=== PATIENT | male | born 1975 | race Caucasian/White ===

== ENCOUNTER 2017-01-25 12:15 | Emergency (ER) | payer MEDICAID ==
--- NOTE | 2017-01-25 12:33 | EDPHY ---
H & P Time Seen by Provider: 01/25/17 12:21 HPI/ROS: CHIEF COMPLAINT: Right testicle pain x 3 days HISTORY OF PRESENT ILLNESS: 41-year-old homeless male complaining of acute right testicle pain for the past 3 days which started after he was getting out of the shower and bumped his right testicle. No urethral discharge. No dysuria hematuria increased frequency. Last unprotected sexual activity was 6 days ago with a female. No prior history of known STD. No straddle injury. PHYSICAL EXAM (Prior to examination, patient consented to physical exam, hands were washed and my usual and customary physical exam procedures followed) 1) GENERAL: Well-developed, well-nourished, alert and oriented. Appears to be in no acute distress. 2) HEAD: Normocephalic 3) HEENT: sclera anicteric 4) LUNGS: Breathing comfortably. 5) : Circumcised. No urethral discharge. Bilateral testicles are descended with bilateral cremasteric reflex present and brisk. No visible trauma. No signs of Vinay's gangrene or cellulitis. Smoking Status: Current every day smoker Constitutional: Initial Vital Signs Temperature (C) 36.6 C 01/25/17 12:17 Heart Rate 64 01/25/17 12:17 Respiratory Rate 16 01/25/17 12:17 Blood Pressure 104/77 01/25/17 12:17 O2 Sat (%) 96 01/25/17 12:17 O2 Delivery Mode Room Air Allergies/Adverse Reactions: geodone Allergy (Severe, Uncoded 01/25/17 12:20) "locks me up" Home Medications: Medication Instructions Recorded Doxycycline Hyclate 100 mg PO BID #20 capsule 01/25/17 Haloperidol Dec IM Q4wk 100 mg IM 01/25/17 [Haldol Decanoate 100 *IM Q4week*] MDM/Departure - MDM Imaging Results: Imaging Impressions Testicular Ultrasound 01/25/17 12:30 Impression: Right epididymitis. Findings were discussed with Jessica Law PA-C at 13:17, on 01/25/2017. Images reviewed by myself ED Course/Re-evaluation: Patient was re-evaluated with serial examinations was recently at 1:20 p.m.. Discussed his imaging results consistent with right-sided epididymitis. Suspect STD. Treated with Rocephin and doxycycline. Doubt torsion. Doubt malignancy. Recommend [facility] Differential Diagnosis: In no particular order including but not limited to Vinay's gangrene, cellulitis, testicular torsion, epididymitis, testicular fracture - Depart Disposition: Home, Routine, Self-Care Clinical Impression: Right epididymitis Condition: Good Instructions: Scrotal Pain (ED), Epididymitis (ED) Additional Instructions: Return to the ER if you develop new or worsening testicle pain, abdominal pain, fever, chills or any other symptoms. Prescriptions: Doxycycline Hyclate 100 mg PO BID #20 capsule Referrals: [facility],. [Clinic] - 1-2 days without fail
[2017-01-25 12:48] LABS: COLOR YELLOW; LEUKOCYTE ESTERASE,URINE NEGATIVE (NEGATIVE); NITRITE,URINE NEGATIVE (NEGATIVE)
[2017-01-25 13:24] LABS: MUCUS TRACE /lpf (NONE-1+)
[2017-01-25] MEDS ORDERED: CEFTRIAXONE IM 350 MG/ML SYRINGE IM ONE ×2 (13:25→13:45)
[2017-01-25] MEDS ORDERED: DOXYCYCLINE HYCLATE 100 MG CAP/TAB PO ONE (13:25)
[2017-01-25 14:29] VITALS: BP 137/72; PULSE 78; RESP 20; TEMP 98.1; O2SAT 97
[2017-01-26 12:23] LABS: CHLAMYDIA AMPLIFICATION GENPRB NEGATIVE (NEGATIVE)
== END 2017-01-25 15:10 | disposition home or self-care (01) ==
DX: N45.1 Epididymitis (principal); F17.200 Nicotine dependence, unspecified, uncomplicated
CPT/HCPCS: J0696

== ENCOUNTER 2017-06-29 05:25 | Emergency (ER) | payer MEDICAID ==
[2017-06-29] MEDS ORDERED: LITHIUM CARBONATE 300 MG TAB PO ONE (05:29)
--- NOTE | 2017-06-29 05:34 | EDPHY ---
H & P HPI/ROS: HPI CHIEF COMPLAINT: Right hand pain, "I need lithium " HISTORY OF PRESENT ILLNESS: This patient 42-year-old male, presents emergency room by EMS for right hand pain. He states he punched a wall 10 days ago. He now has right hand pain it has been present for 10 days and swelling. He thinks he has a boxer's fracture he has had 1 before. A doing reports to me that he has not had lithium in 2 days. He wants a lithium does 300 mg. declined blood draw. Past Medical History: Schizoaffective disorder Past Surgical History: No recent surgery Social History: Homeless, denies drugs alcohol tobacco products. Family History: Noncontributory ROS REVIEW OF SYSTEMS: A comprehensive 10 point review of systems is otherwise negative aside from elements mentioned in the history of present illness. Exam Constitutional appears well nontoxic, triage nursing summary reviewed, vital signs reviewed, awake/alert. Eyes normal conjunctivae and sclera, EOMI, PERRLA. HENT normal inspection, atraumatic, moist mucus membranes, no epistaxis, neck supple/ no meningismus, no raccoon eyes. Respiratory clear to auscultation bilaterally, normal breath sounds, no respiratory distress, no wheezing. Cardiovascular rate normal, regular rhythm, no murmur, no edema, distal pulses normal. Gastrointestinal soft, non-tender, no rebound, no guarding, normal bowel sounds, no distension, no pulsatile mass. Genitourinary no CVA tenderness. Musculoskeletal : Right hand vascular intact. Good distal pulse. Good cap refill. Good sensation. Full range of motion. However noted swelling 4th and 5th metacarpal he is unable to fully extend his 4th and 5th digit. Good cap refill. Sensation intact. Vascularly intact. no midline vertebral tenderness , full range of motion, no calf swelling, no tenderness of extremities, no meningismus, good pulses, neurovascularly intact. Skin pink, warm, & dry, no rash, skin atraumatic. Neurologic awake, alert and oriented x 3, AAOx3, moves all 4 extremities equally, motor intact, sensory intact, CN II-XII intact, normal cerebellar, normal vision, normal speech. Psychiatric normal mood/affect. Heme/Lymph/Immune no lymphadenopathy. Differential Diagnosis: Includes but is not limited to in a particular order boxer's fracture, need for lithium. Right hand contusion, right hand soft tissue injury Medical Decision Making: Plan for this patient x-ray right hand to rule out fracture. If there is a fracture be splinted and referred to Hand surgery. I will give him a dose of lithium 300 mg here at his request. Re-evaluation: 0556AM: X-ray reviewed. This shows a fracture of the 4th and 5th metacarpal. This is 10-day-old. Patient be splinted ulnar gutter splint. Follow up with Hand surgery. I discussed this with the patient. He understands. I have answered his questions. Compartments are soft. He understands to return emergency room if he has any questions or concerns. Source: Patient, EMS - Medical/Surgical History Other PMH: PS - Social History Smoking Status: Current every day smoker Constitutional: Initial Vital Signs Temperature (C) 36.7 C 06/29/17 05:33 Heart Rate 68 06/29/17 05:33 Respiratory Rate 16 06/29/17 05:33 Blood Pressure 119/65 06/29/17 05:33 O2 Sat (%) 97 06/29/17 05:33 O2 Delivery Mode Room Air Allergies/Adverse Reactions: geodone Allergy (Severe, Uncoded 06/29/17 05:29) "locks me up" Home Medications: Medication Instructions Recorded Doxycycline Hyclate 100 mg PO BID #20 capsule 01/25/17 Haloperidol Dec IM Q4wk 100 mg IM 01/25/17 [Haldol Decanoate 100 *IM Q4week*] LORazepam 06/29/17 Medical Decision Making - Data Points Medications Given: Discontinued Medications [place] Carbonate ([place] Carbonate) 300 mg PO ONCE ONE Stop: 06/29/17 05:30 Last Admin: 06/29/17 05:44 Dose: 300 mg Departure - Departure Disposition: Home, Routine, Self-Care Clinical Impression: Boxers fracture Qualifiers: Encounter type: initial encounter Fracture type: closed Qualified Code(s): S62.339A - Displaced fracture of neck of unspecified metacarpal bone, initial encounter for closed fracture Condition: Good Instructions: Hand Fracture (ED) Additional Instructions: 1. Follow up with Orthopedics Hand surgery. 2. Return emergency room if develops worsening symptoms questions or concerns. 3. Stay in your splint for comfort. Do not get wet. Referrals: Patient,NotPresent [Unknown] - As per Instructions Yuan Sanderson MD [Medical Doctor] - As per Instructions
[2017-06-29 05:35] VITALS: BP 119/65; PULSE 68; RESP 16; TEMP 98.1; O2SAT 97
== END 2017-06-29 06:16 | disposition home or self-care (01) ==
LOC: EDUNIT#
DX: S62.334A Displaced fracture of neck of fourth metacarpal bone, right hand, initial encounter for closed fracture (principal); S62.336A Displaced fracture of neck of fifth metacarpal bone, right hand, initial encounter for closed fracture; F17.200 Nicotine dependence, unspecified, uncomplicated; W22.01XA Walked into wall, initial encounter

== ENCOUNTER 2017-07-01 00:04 | Emergency (ER) | payer MEDICAID ==
[2017-07-01] MEDS ORDERED: NS 1,000 ML IV ONE ×2 (01:17→02:05)
[2017-07-01 01:22] LABS: % IMMATURE GRANULYOCYTES 0.5 % (0.0-1.1); ABSOLUTE IMMATURE GRANULOCYTES 0.09 10^3/uL (0.00-0.10); ADD DIFF? NO; ADD MORPH? NO; ADD SCAN? NO; ATYPICAL LYMPHOCYTE FLAG 0 (0-99); FRAGMENT RBC FLAG 0 (0-99); HEMATOCRIT 43.1 % (40.0-51.0); LEFT SHIFT FLG 0 (0-99); LIPEMIA HEMOLYSIS FLAG 90 (0-99); MEAN CELL HEMOGLOBIN 32.2 pg (27.9-34.1); MEAN CELL HEMOGLOBIN CONCENTR. 34.8 g/dL (32.4-36.7); MEAN CELL VOLUME 92.5 fL (81.5-99.8); MEAN PLATELET VOLUME 9.9 fL (8.7-11.7); PLATELET CLUMPS FLAG 10 (0-99); PLATELET COUNT 208 10^3/uL (150-400); RED BLOOD CELL COUNT 4.66 10^6/uL (4.40-6.38); RED CELL DISTRIBUTION WIDTH 13.3 % (11.5-15.2)
[2017-07-01 01:27] LABS: ANION GAP 14 mEq/L (8-16); CALCIUM 10.1 mg/dL (8.5-10.4); CARBON DIOXIDE 28 mEq/l (22-31); CHLORIDE 104 mEq/L (97-110); GLOMERULAR FILTRATION RATE > 60; GLUCOSE 111 mg/dL (70-100); SODIUM 146 mEq/L (134-144)
--- NOTE | 2017-07-01 01:33 | EDPHY ---
H & P Smoking Status: Current every day smoker Time Seen by Provider: 07/01/17 00:43 HPI/ROS: CHIEF COMPLAINT: "I am sick " HISTORY OF PRESENT ILLNESS: 42-year-old male presents to the emergency department stating "I am sick ". The patient has not been vomiting. He states "I just do not feel good ". He denies pain in his chest or difficulty breathing. He denies a headache. He denies any reported trauma. No known ill contacts. Patient has not taken any medication for his symptoms. REVIEW OF SYSTEMS: Constitutional: No fever, no chills. Eyes: No double or blurry vision. ENT: No sore throat. Respiratory: No cough, no shortness of breath. Cardiac: No chest pain. Gastrointestinal: No abdominal pain, vomiting or diarrhea. Genitourinary: No dysuria. Musculoskeletal: No neck or back pain. Skin: No rashes. Neurological: No headache. (Leona Ley) Past Medical/Surgical History: Schizoaffective disorder (Leona Ley) Social History: Homeless (Leona Ley) Physical Exam: General Appearance: No distress. 137/103, 95% on room air, afebrile with a temperature 37.1degrees. No physical signs of trauma noted. Appears tired. Eyes: Pupils equal and round. Extraocular motions are all intact. ENT: Mouth: Mucous membranes slightly dry. Respiratory: No wheezing, rhonchi, or rales, lungs are clear to auscultation. Cardiovascular: Regular rate and rhythm. Gastrointestinal: Abdomen is soft and nontender, no masses, no rebound or guarding, bowel sounds normal. Neurological: Uncooperative, cannot determine. Skin: Warm and dry, no rashes. Musculoskeletal: Nontender to palpate along the cervical, thoracic or lumbar spine. Neck is supple. Extremities: Full range of motion and no peripheral edema. Psychiatric: Agitated. (Leona Ley) Constitutional: Initial Vital Signs Temperature (C) 37.1 C 07/01/17 00:19 Heart Rate 89 07/01/17 00:19 Respiratory Rate 20 07/01/17 00:19 Blood Pressure 137/103 H 07/01/17 00:19 O2 Sat (%) 95 07/01/17 00:19 O2 Delivery Mode Room Air Allergies/Adverse Reactions: geodone Allergy (Severe, Uncoded 07/01/17 00:19) "locks me up" Home Medications: Medication Instructions Recorded Doxycycline Hyclate 100 mg PO BID #20 capsule 01/25/17 Haloperidol Dec IM Q4wk 100 mg IM 01/25/17 [Haldol Decanoate 100 *IM Q4week*] LORazepam 06/29/17 Medical Decision Making ED Course/Re-evaluation: 42-year-old homeless male presents stating that he does not feel well and states "I am sick ". Laboratory studies reveal elevated white blood cell count of over 18,000. Chemistries are within normal limits. He did receive IV normal saline in the emergency department. (Leona Ley) 0253AM: Patient resting comfortably. No acute distress. Vital signs stable. Went saw and evaluated the patient he is asking for milk to drink. He states he feels fine. He states his x-ray was to be discharged from the emergency room. His vital signs stable. He has no fever here is abdomen is soft. Blood work is reviewed. Does have a leukocytosis of 18,000 but no signs of infection on exam. Patient states he otherwise feels well. I did give patient return precautions. Stands return emergency room if develops worsening symptoms includes vomiting, fever questions or concerns. ( Valente Jennings) Differential Diagnosis: Including but not limited to electrolyte abnormality, dehydration, pneumonia, influenza, viral upper respiratory infection (Leona Ley) Care Turn Over: Care will be turned over to Dr. Jennings for disposition and plan. (Leona Ley) - Data Points Laboratory Results: Laboratory Results 07/01/17 00:55 07/01/17 00:55 07/01/17 07/01/17 07/01/17 02:28 00:55 00:55 WBC 18.21 10^3/uL H 10^3/uL (3.80-9.50) RBC 4.66 10^6/uL 10^6/uL (4.40-6.38) Hgb 15.0 g/dL g/dL (13.7-17.5) Hct 43.1 % % (40.0-51.0) MCV 92.5 fL fL (81.5-99.8) MCH 32.2 pg pg (27.9-34.1) MCHC 34.8 g/dL g/dL (32.4-36.7) RDW 13.3 % % (11.5-15.2) Plt Count 208 10^3/uL 10^3/uL (150-400) MPV 9.9 fL fL (8.7-11.7) Neut % (Auto) 89.9 % H % (39.3-74.2) Lymph % (Auto) 2.5 % L % (15.0-45.0) Christian % (Auto) 6.7 % % (4.5-13.0) Eos % (Auto) 0.2 % L % (0.6-7.6) Baso % (Auto) 0.2 % L % (0.3-1.7) Nucleat RBC Rel Count 0.0 % % (0.0-0.2) Absolute Neuts (auto) 16.38 10^3/uL H 10^3/uL (1.70-6.50) Absolute Lymphs (auto) 0.45 10^3/uL L 10^3/uL (1.00-3.00) Absolute Monos (auto) 1.22 10^3/uL H 10^3/uL (0.30-0.80) Absolute Eos (auto) 0.03 10^3/uL 10^3/uL (0.03-0.40) Absolute Basos (auto) 0.04 10^3/uL 10^3/uL (0.02-0.10) Absolute Nucleated RBC 0.00 10^3/uL 10^3/uL (0-0.01) Immature Gran % 0.5 % % (0.0-1.1) Immature Gran # 0.09 10^3/uL 10^3/uL (0.00-0.10) Sodium 146 mEq/L H mEq/L (134-144) Potassium 4.0 mEq/L mEq/L (3.5-5.2) Chloride 104 mEq/L mEq/L (97-110) Carbon Dioxide 28 mEq/l mEq/l (22-31) Anion Gap 14 mEq/L mEq/L (8-16) BUN 17 mg/dL mg/dL (7-23) Creatinine 1.0 mg/dL mg/dL (0.7-1.3) Estimated GFR > 60 Glucose 111 mg/dL H mg/dL (70-100) Calcium 10.1 mg/dL mg/dL (8.5-10.4) Urine Color PALE YELLOW Urine Appearance CLEAR Urine pH 6.0 (5.0-7.5) Ur Specific [place] 1.005 (1.002-1.030) Urine Protein NEGATIVE (NEGATIVE) Urine Ketones NEGATIVE (NEGATIVE) Urine Blood NEGATIVE (NEGATIVE) Urine Nitrate NEGATIVE (NEGATIVE) Urine Bilirubin NEGATIVE (NEGATIVE) Urine Urobilinogen NEGATIVE EU EU (0.2-1.0) Ur Leukocyte Esterase TRACE H (NEGATIVE) Urine RBC 1-3 /hpf /hpf (0-3) Urine WBC 5-10 /hpf H /hpf (0-3) Ur Epithelial Cells TRACE /lpf /lpf (NONE-1+) Urine Glucose NEGATIVE (NEGATIVE) Medications Given: Discontinued Medications Sodium Chloride (Ns) 1,000 mls @ 0 mls/hr IV ONCE ONE PRN Reason: Wide Open Stop: 07/01/17 01:18 Last Admin: 07/01/17 01:51 Dose: 1,000 mls Departure - Departure Disposition: Home, Routine, Self-Care Clinical Impression: Dehydration Condition: Good Instructions: Dehydration (ED) Additional Instructions: 1. Stay well-hydrated drink lots of fluids. 2. Return emergency room if there is worsening symptoms questions or concerns. 3. Return if you do not feel well or have high fever or vomiting. Referrals: NONE *PRIMARY CARE P,. [Primary Care Provider] - As per Instructions
[2017-07-01 02:29] VITALS: RESP 16; TEMP 97.9
[2017-07-01 02:38] LABS: COLOR PALE YELLOW; LEUKOCYTE ESTERASE,URINE TRACE (NEGATIVE); NITRITE,URINE NEGATIVE (NEGATIVE)
[2017-07-01 03:04] VITALS: BP 114/74; PULSE 66; O2SAT 96
== END 2017-07-01 03:02 | disposition home or self-care (01) ==
DX: E86.0 Dehydration (principal); F17.200 Nicotine dependence, unspecified, uncomplicated

== ENCOUNTER 2017-08-12 17:34 | Emergency (ER) | payer MEDICAID ==
[2017-08-12 17:39] VITALS: BP 118/81; PULSE 100; RESP 16; TEMP 98.4; O2SAT 95
[2017-08-12] MEDS ORDERED: LORAZEPAM 1 MG PREPACK#4 BTL TAKEHOME ONE (17:52)
--- NOTE | 2017-08-12 17:52 | EDPHY ---
H & P HPI/ROS: Chief complaint: Anxiety, needs Invega shot History of present illness: This is a 42-year-old male with multiple psychiatric problems who presents to the emergency department requesting an Invega shot. He states he was started on this last month. He normally gets them at the [facility]. However he was out of town last week, and the clinic is closed this weekend. He is starting to get very anxious without it. He knows he will get worse if he does not get medicated. He states he has also taken Ativan before to treat similar symptoms. He denies other current signs or symptoms including no suicidal ideation. No homicidal ideation. No illness or injury. - Personal History Current Tetanus/Diphtheria Vaccine: Unsure Current Tetanus Diphtheria and Acellular Pertussis (TDAP): Unsure - Medical/Surgical History Hx Asthma: No Hx Chronic Respiratory Disease: No Hx Diabetes: No Hx Cardiac Disease: No Hx Renal Disease: No Hx Cirrhosis: No Hx Alcoholism: No Hx HIV/AIDS: No Hx Splenectomy or Spleen Trauma: No Other PMH: schizoaffective,bipolar - Social History Smoking Status: Heavy smoker - Physical Exam Exam: General Appearance: Alert, nontoxic. Eyes: Pupils equal and round no injection. Respiratory: Chest is non tender, lungs are clear to auscultation. Cardiac: regular rate and rhythm Gastrointestinal: Abdomen is soft and non tender, no masses, bowel sounds normal. Musculoskeletal: Neck is supple and non tender. Extremities have full range of motion and are non tender. Skin: No rashes or lesions. Neurologic: Alert and oriented x4. Strength and sensation intact and symmetric. Psychiatric: Patient is cooperative. He is anxious. Constitutional: Initial Vital Signs Temperature (C) 36.9 C 08/12/17 17:35 Heart Rate 100 08/12/17 17:35 Respiratory Rate 16 08/12/17 17:35 Blood Pressure 118/81 H 08/12/17 17:35 O2 Sat (%) 95 08/12/17 17:35 O2 Delivery Mode Room Air Allergies/Adverse Reactions: geodone Allergy (Severe, Uncoded 08/12/17 17:39) "locks me up" Home Medications: Medication Instructions Recorded Doxycycline Hyclate 100 mg PO BID #20 capsule 01/25/17 Haloperidol Dec IM Q4wk 100 mg IM 01/25/17 [Haldol Decanoate 100 *IM Q4week*] LORazepam 06/29/17 Paliperidone Palmitate [Invega 39 mg IM Q30D 08/12/17 [place]] Medical Decision Making ED Course/Re-evaluation: Patient seen under the supervision of my primary supervising physician Dr. Madai Vincent. Patient presents to the emergency department requesting an Invega shot for his psychiatric problems. Ultimately we have discussed we are not comfortable providing this in the emergency department and that he needs to go through his mental health team. However he does state that he is treated symptoms with Ativan successfully before as well. He is asking if he can get 2 Ativan tablets to get him through the weekend until he can go and get a shot on Monday when the center opens. I have discussed that we will give him a prepack of Ativan which will contain 4 tablets. He feels very strongly that this will get him through the weekend and he can follow up for a shot on Monday. He is happy with the plan. I have discussed that in the future we cannot provide this sort of medication and that he needs to make sure he appropriately times getting his medications. The nurse has separately interviewed the patient as well as myself and patient has not reported any history of SI, HI or any current illness or injury beyond needing medications for anxiety. He is discharged. Differential Diagnosis: Included but not limited to anxiety, depression, bipolar, substance abuse - Data Points Medications Given: Discontinued Medications Lorazepam (Ativan 1 Mg Prepack#4) 1 btl TAKEHOME EDNOW ONE Stop: 08/12/17 17:53 Last Admin: 08/12/17 17:55 Dose: 1 btl Departure - Departure Disposition: Home, Routine, Self-Care Clinical Impression: Anxiety Condition: Good Instructions: Lorazepam (By mouth), Anxiety (ED) Additional Instructions: Follow-up with [facility] on Monday for your Invega shot You were given a prepack of Ativan in the emergency room today for treatment of your symptoms. In the future we cannot provide medications like this for you, you must continue to be followed by [facility] or another psychiatric facility If symptoms worsen or new symptoms develop return to the emergency room for recheck Referrals: NONE *PRIMARY CARE P,. [Primary Care Provider] - As per Instructions [facility] [Outside] - As per Instructions
== END 2017-08-12 17:57 | disposition home or self-care (01) ==
DX: F41.9 Anxiety disorder, unspecified (principal); F17.200 Nicotine dependence, unspecified, uncomplicated

== ENCOUNTER 2017-10-24 11:50 | Emergency (ER) | payer MEDICAID ==
[2017-10-24 11:57] VITALS: TEMP 97.5
--- NOTE | 2017-10-24 13:33 | EDPHY ---
H & P Stated Complaint: c/o leg pain Time Seen by Provider: 10/24/17 11:54 HPI/ROS: CHIEF COMPLAINT: Right leg pain HISTORY OF PRESENT ILLNESS: The patient presents to the ED with several days of worsening right leg pain. The patient complains primarily of pain along the medial aspect of his thigh. The patient denies prior history of PE or DVT. The patient does have a history of schizophrenia and is on outpatient Invega injections through the [facility]. The patient denies any history of fall or trauma. The patient denies acute numbness or weakness. The patient is also requesting food. REVIEW OF SYSTEMS: A comprehensive 10 point review of systems is otherwise negative aside from elements mentioned in the history of present illness. Source: Patient Exam Limitations: No limitations - Personal History Current Tetanus/Diphtheria Vaccine: Unsure Current Tetanus Diphtheria and Acellular Pertussis (TDAP): Unsure - Medical/Surgical History Hx Asthma: No Hx Chronic Respiratory Disease: No Hx Diabetes: No Hx Cardiac Disease: No Hx Renal Disease: No Hx Cirrhosis: No Hx Alcoholism: No Hx HIV/AIDS: No Hx Splenectomy or Spleen Trauma: No Other PMH: schizoaffective,bipolar, ADHD - Social History Smoking Status: Heavy smoker - Physical Exam Exam: General Appearance: Alert, no distress Eyes: Pupils equal and round no pallor or injection ENT, Mouth: Mucous membranes moist Respiratory: There are no retractions, lungs are clear to auscultation Cardiovascular: Regular rate and rhythm Gastrointestinal: Abdomen is soft and nontender, no masses, bowel sounds normal Neurological: A&O, normal motor function, normal sensory exam, normal cranial nerves Skin: Warm and dry, no rashes Musculoskeletal: Neck is supple nontender Extremities: Tenderness to palpation along the right medial thigh Constitutional: Initial Vital Signs Temperature (C) 36.4 C 10/24/17 11:55 Heart Rate 72 10/24/17 11:55 Respiratory Rate 20 10/24/17 11:55 Blood Pressure 109/78 10/24/17 11:55 O2 Sat (%) 96 10/24/17 11:55 O2 Delivery Mode Room Air Allergies/Adverse Reactions: geodone Allergy (Severe, Uncoded 10/24/17 11:54) "locks me up" Home Medications: Medication Instructions Recorded [place] Carbonate 10/24/17 Medical Decision Making - Diagnostics Imaging Results: Imaging Impressions Extremity Venous Study 10/24/17 12:44 Impression: There is no sonographic evidence of deep or superficial vein thrombosis in the right lower extremity. Findings were discussed with Jeff Hoskins MD at 13:14, on 10/24/2017. ED Course/Re-evaluation: The patient presents to the ED for evaluation of atraumatic right thigh pain. The patient is noted to have a 2+ dorsalis pedis and posterior tibial pulse. Patient is neurologically intact. The patient was taken for an ultrasound which demonstrates no evidence of a DVT or superficial thrombophlebitis. The patient has no clinical evidence of a cellulitis, abscess or necrotizing fasciitis. The patient will be advised to take ibuprofen as needed for pain. He should return to the ED for markedly worsening symptoms or other concerns. Differential Diagnosis: Differential diagnosis considered includes myofascial strain, cellulitis, abscess, DVT, superficial phlebitis Departure - Departure Disposition: Home, Routine, Self-Care Clinical Impression: Leg pain Condition: Good Instructions: Leg Pain (ED) Additional Instructions: 1. Take Ibuprofen or Motrin 600 mg by mouth three times a day. 2. Your ultrasound demonstrates no evidence of a blood clot. 3. Please schedule a follow-up appointment with [facility] to establish primary care. 4. Please follow up with [facility] as scheduled. Referrals: [facility],. [Clinic] - As per Instructions
[2017-10-24 13:48] VITALS: BP 108/76; PULSE 70; RESP 18; O2SAT 97
== END 2017-10-24 13:50 | disposition home or self-care (01) ==
LOC: EDUNIT#
DX: M79.604 Pain in right leg (principal); F17.200 Nicotine dependence, unspecified, uncomplicated

== ENCOUNTER 2017-11-12 02:33 | Emergency (ER) | payer MEDICAID ==
--- NOTE | 2017-11-12 02:55 | EDPHY ---
H & P Stated Complaint: SI - Medical/Surgical History Hx Asthma: No Hx Chronic Respiratory Disease: No Hx Diabetes: No Hx Cardiac Disease: No Hx Renal Disease: No Hx Cirrhosis: No Hx Alcoholism: No Hx HIV/AIDS: No Hx Splenectomy or Spleen Trauma: No Other PMH: schizoaffective,bipolar, ADHD, paranoid schizaphrenia - Social History Smoking Status: Current some day smoker Time Seen by Provider: 11/12/17 02:42 HPI/ROS: Chief Complaint: Suicidal HPI: 42-year-old male with a history of schizophrenia and schizoaffective disorder presenting complaining of feeling suicidal and homicidal. Patient states that have not been any particular predisposing factors. He has a plan of jumping in front of a car. He does state that he has been taking his medications as prescribed. Denies hallucinations. ROS: 10 point Review of Systems is negative except as noted in the HPI. PMH: Schizophrenia Social History: Denies smoking Family History: non-contributory Physical Exam: Gen: Awake, Alert, No Distress, agitated HEENT: Nose: no rhinorrhea Eyes: PERRLA, EOMI Mouth: Moist mucosa Neck: Supple, no JVD Chest: nontender, lungs clear to auscultation Heart: S1, S2 normal, no murmur Abd: Soft, non-tender, no guarding Back: no CVA tenderness, no midline tenderness Ext: no edema, non-tender Skin: no rash Neuro: CN II-XII intact, Sensation grossly intact, Strength 5/5 in bilateral upper and lower extremities (Troy Levine) Constitutional: Initial Vital Signs Temperature (C) 36.5 C 11/12/17 02:37 Heart Rate 94 11/12/17 02:37 Respiratory Rate 18 11/12/17 02:37 Blood Pressure 130/101 H 11/12/17 02:37 O2 Sat (%) 97 11/12/17 02:37 O2 Delivery Mode Room Air O2 (L/minute) 0 Allergies/Adverse Reactions: geodone Allergy (Severe, Uncoded 11/12/17 02:39) "locks me up" Home Medications: Medication Instructions Recorded [place] Carbonate 10/24/17 Medical Decision Making ED Course/Re-evaluation: Patient is resting comfortably after 2 mg of Ativan. Initially was quite agitated is not much calmer. Am awaiting mental health evaluation. He is medically cleared. [address] Hoskins pending mental health evaluation. No issues during my care this patient overnight. (Troy Levine) Other Provider: I assumed care of the patient at 0700. I reviewed the patient's workup including his laboratory testing, vital signs and prior ED visits. The patient was evaluated by [facility]. They do feel the patient is gravely disabled and have placed him on M1 psychiatric hold. Psychiatric placement is currently pending as of 12:00 p.m.. The patient will be turned over to Dr. Dory Jack at shift change pending psychiatric disposition. (Jeff Hoskins) I assumed care of this patient from Dr. Hoskins at 3:00 p.m.. At 6:30 a.m. I am notified that he has been accepted at [facility]. I have completed the EMTALA form. Transportation is being arranged. (Dory Jack) - Data Points Laboratory Results: Laboratory Results 11/12/17 03:11 11/12/17 03:11 Medications Given: Discontinued Medications Lorazepam (Ativan) 2 mg PO EDNOW ONE Stop: 11/12/17 03:28 Last Admin: 11/12/17 03:31 Dose: 2 mg Lorazepam (Ativan) 2 mg PO EDNOW ONE Stop: 11/12/17 14:54 Last Admin: 11/12/17 14:53 Dose: 2 mg Departure - Departure Disposition: Other Psych, Not [place] Clinical Impression: Suicidal ideation Schizophrenia Qualifiers: Schizophrenia type: unspecified Qualified Code(s): F20.9 - Schizophrenia, unspecified Condition: Good Referrals: [facility],. [Clinic] - As per Instructions
[2017-11-12 03:20] LABS: PLATELET COUNT 249 10^3/uL (150-400)
[2017-11-12] MEDS ORDERED: LORazepam 1 MG TAB PO ONE ×2 (03:27→14:53)
[2017-11-12] MEDS ORDERED: LORazepam 1 MG TAB ONE (14:51)
[2017-11-12 20:36] VITALS: BP 131/66; PULSE 74; RESP 16; TEMP 97.9; O2SAT 96
== END 2017-11-12 20:39 ==
DX: R45.851 Suicidal ideations (principal); F20.9 Schizophrenia, unspecified; F17.200 Nicotine dependence, unspecified, uncomplicated
CPT/HCPCS: 80305; G0480

== ENCOUNTER 2017-11-19 11:13 | Inpatient (IN) | payer MEDICAID ==
[2017-11-19 12:00] LABS: PLATELET COUNT 240 10^3/uL (150-400)
--- NOTE | 2017-11-19 14:48 | EDPHY ---
H & P Smoking Status: Current some day smoker Time Seen by Provider: 11/19/17 12:23 HPI/ROS: CHIEF COMPLAINT: M1 hold HISTORY OF PRESENT ILLNESS: 42-year-old male presents to the emergency department on M1 hold. Patient has a known history of paranoid schizophrenia. He denies feeling suicidal or homicidal. He is delusional. He admits to smoking marijuana however denies any other substance abuse. Currently denies chest pain or difficulty breathing. He states that he is starving and wants "real food". He states that he has been taking his medication as prescribed. REVIEW OF SYSTEMS: Constitutional: No fever, no chills. Eyes: No double or blurry vision. ENT: No sore throat. Respiratory: No cough, no shortness of breath. Cardiac: No chest pain. Gastrointestinal: No abdominal pain, vomiting or diarrhea. Genitourinary: No dysuria. Musculoskeletal: No neck or back pain. Skin: No rashes. Neurological: No headache. (Leona Ley) Past Medical/Surgical History: Paranoid schizophrenia, marijuana (Leona Ley) Social History: Homeless (Leona Ley) Physical Exam: General Appearance: Alert, no distress. No visible signs of trauma to his head. Eyes: Pupils equal and round. Extraocular motions are all intact. ENT: Mouth: Mucous membranes moist. Respiratory: No wheezing, rhonchi, or rales, lungs are clear to auscultation. Cardiovascular: Regular rate and rhythm. Gastrointestinal: Abdomen is soft and nontender, no masses, no rebound or guarding, bowel sounds normal. Neurological: Uncooperative, cannot determine. Skin: Warm and dry, no rashes. Musculoskeletal: Nontender to palpate along the cervical, thoracic or lumbar spine. Neck is supple. Extremities: Full range of motion and no peripheral edema. Psychiatric: no agitation. (Leona Ley) Constitutional: Initial Vital Signs Temperature (C) 37.4 C 11/19/17 11:20 Heart Rate 85 11/19/17 11:20 Respiratory Rate 18 11/19/17 11:20 Blood Pressure 148/90 H 11/19/17 11:20 O2 Sat (%) 98 11/19/17 11:20 O2 Delivery Mode Room Air Allergies/Adverse Reactions: geodone Allergy (Severe, Uncoded 11/19/17 11:15) "locks me up" Home Medications: Medication Instructions Recorded NK [No Known Home Meds] 11/20/17 Medical Decision Making ED Course/Re-evaluation: Patient is on an M1 hold. He has been medically cleared and is awaiting mental health evaluation. 5:44 p.m.: The patient was evaluated by mental health and they are seeking inpatient placement. The patient was kept on M1 hold. (Leona Ley) 6:00 a.m.- Patient has remained stable throughout my shift with no events overnight. He continues to await placement. I anticipate at 7:00 a.m. The case will be signed out to the oncoming provider Dr. Sutton. (Dahiana Crawford) I took over care of this patient at 5:30 p.m.. The patient is here for schizophrenia and noncompliance with psychiatric medications. The patient is awaiting admission for psychiatric treatment. 11:15 p.m., care turned over to Dr. Crawford. The patient still awaits placement for psychiatric admission. (Mignon Sewell) Differential Diagnosis: Depression including functional and major depression, situational depression, medication side effect, drugs and alcohol abuse. (Leona Ley) Care Turn Over: Care will be turned over to Dr. Mignon Sewell at 6:00 p.m. For disposition and plan. (Leona Ley) - Data Points Laboratory Results: Laboratory Results 11/19/17 11:30 11/19/17 11:30 Medications Given: [place] Carbonate ([place] Ud Syringe) 300 mg PO BID LARISSA Stop: 05/19/18 10:44 Last Admin: 11/21/17 08:20 Dose: 300 mg Lorazepam (Ativan) 1 mg PO Q4 PRN PRN Reason: Anxiety, Able to Take PO Stop: 05/19/18 10:24 Last Admin: 11/21/17 04:48 Dose: 1 mg Discontinued Medications Lorazepam (Ativan) 1 mg PO EDNOW ONE Stop: 11/19/17 18:38 Last Admin: 11/19/17 18:39 Dose: 1 mg Olanzapine (Zyprexa Zydis) 10 mg PO EDNOW ONE Stop: 11/19/17 18:03 Last Admin: 11/19/17 18:36 Dose: Not Given Risperidone (Risperdal-M) 1 mg SL BID LARISSA Stop: 05/19/18 20:59 Last Admin: 11/21/17 08:28 Dose: 1 mg Departure - Departure Disposition: Other Psych, Not [place] Clinical Impression: Schizophrenia Condition: Good
[2017-11-19] MEDS: OLANZapine DISINTEGR 10 MG TAB PO ONE ×2 (18:33→18:36)
[2017-11-19] MEDS ORDERED: LORazepam 1 MG TAB PO ONE (18:37)
[2017-11-20] MEDS ORDERED: MAGNESIUM HYDROXIDE 30 ML UDCUP PO PRN (10:25)
[2017-11-20] MEDS ORDERED: ACETAMINOPHEN 325 MG TAB PO PRN (10:25)
[2017-11-20] MEDS ORDERED: OLANZapine DISINTEGR 10 MG TAB PO PRN (10:25)
[2017-11-20] MEDS ORDERED: MAG HYDROX/AL HYDROX/SIMETH 30 ML UDCUP PO PRN (10:25)
[2017-11-20] MEDS ORDERED: NICOTINE POLACRILEX 2 MG GUM B PRN (10:25)
[2017-11-20] MEDS: LITHIUM CARBONATE 300 MG/5 ML UDSYR PO SCH ×2 (12:20→21:27)
--- NOTE | 2017-11-20 15:31 | BAPA ---
[f rep st] ADMISSION PSYCHIATRIC ASSESSMENT DATE OF SERVICE: 11/20/2017 IDENTIFICATION: This is a 42-year-old single white male, who is homeless with a history of severe mental illness, who was admitted from the [facility] Emergency Department. CHIEF COMPLAINT: "Hey, motherfucker, I need my ADHD medications, I need my Adderall, I need my sativa. I wanna go on a vacation. If you don't help me, I am going to slap the police and fight the police and kill the police; I will slap and beat your ass mother curtis." HISTORY OF PRESENT ILLNESS: The patient is a poor historian due to rapid, pressured, rambling speech with tangential thinking and disorganized thinking and profane, threatening statements. He was discharged from [facility] on November 15, 2017. He reports since then he has been homeless. The report from the emergency room is that the patient was causing a disturbance in the community. He apparently was throwing a cup at a bicyclist. When apprehended, he was disorganized and agitated. In the ER, he was screaming, yelling, and menacing to security. He was repeatedly masturbating in the emergency department and having disruptive behavior there. The patient was admitted for grave disability on an M1 hold. The patient is a poor historian. He is unable to explain how long he has been dealing with mental health issues. He reports "650" [place]. He reports he is currently homeless. He is unable to explain how he would get food or intermediate if he wasn't in the hospital. He reports in the past he has had Social Security Disability benefits, but has not been able to access them for 7 years prior to going to long term in [place]. The patient endorses agitation irritability, decreased sleep, racing thoughts. He denies suicidal thoughts. He does make violent threats. He reports he is going to "slap and beat your ass " to this physician. He also reports a plan to get into a physical altercation with police if discharged. The patient endorses cannabis use. Denies alcohol or other drug abuse - other than cannabis - prior to admission. He denies any current physical complaints. PAST PSYCHIATRIC HISTORY: The patient is a poor historian. He reports that he did not receive any mental health treatment until his late 20s. He reports "650 " [place] coming to [place] a year ago and getting hospitalization at [facility] in [place], [place], as well as a recent hospitalization at [facility] in early November 2017. He reports noncompliance with outpatient mental health treatment between hospitalizations. He reports daily cannabis abuse. He denies any other recent substance abuse, but does report a history of binge drinking alcohol with multiple arrests for public intoxication of alcohol in the past. He also reports past crack cocaine and amphetamine addiction, with past arrests related to drug abuse. He also reports past long term for "having 17, 000 marijuana plants" in [place]. He reports he was later incarcerated in [place]. He denies being currently on probation or parole. He denies being arrested for violent crimes, but then later reports having multiple physical altercations with police in the past. The patient reports extrapyramidal side effects from Geodon, benefit from Invega and lithium, which he was prescribed at [facility]. The [facility] discharge note from November 15, 2017 says, "lithium 300 mg p.o. b.i.d., Invega 6 mg daily." SOCIAL HISTORY: He reports he was raised by his parents without abuse or neglect. He reports that his parents treated him well. He reports he graduated from high school. 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 He dropped out of college. He denies being in the . He denies ever being or having children or ever having a steady job. He reports being on Social Security Disability benefits for severe mental illness in the past. He reports these were turned off 7 years ago and went to long term. He reports, prior to that, his parents were his payee for his Social Security benefits. He reports sometimes talking to his parents. He reports they live in either [place], [place] or [place], [place]. He is unable to give me their names or phone numbers at this time. FAMILY HISTORY: He reports his parents are alive and well, but then he makes rambling statements about Silvia Gehrig disease and dementia that is nonsensical. He denies a family history of suicide or severe mental illness. MEDICAL HISTORY: He reports possibly 2 concussions playing football. He also has a history of an appendectomy. MEDICATIONS: He has not been taking medication since discharge from [facility] on November 15, 2017. ALLERGIES: Geodon which causes extrapyramidal side effects. LABS: CBC, BMP, LFTs, Lipids WNL; UTOX positive for cannabis; serum negative for alcohol; [place] < 0.2; TSH 0.24. VITAL SIGNS: He is 177 cm, 78.9 kg, with BMI of 25.0. His blood pressure is 120/65, heart rate 74, respiratory rate 15, pulse oximetry 98% on room air, temperature afebrile. EXAM: He is an ambulatory white male with numerous tattoos on his arms and chest. He is extremely disheveled with dirty hair and he is malodorous. He is psychomotor agitated, pacing the hallway. His speech is loud, rapid, with pressured speech. His thoughts are rambling with flight of ideas and loose associations. He reports feeling agitated. He appears to be paranoid regarding the police. He also appears to have grandiose delusions that the treatment team is going to provide him with Adderall and marijuana on the unit. The patient denies suicidal thoughts. He does report violent thoughts of wanting to assault this physician, as well as assault police. He denies auditory hallucinations. His insight is poor. His memory appears fragmented due to his mental status, but grossly intact to major events. His judgment appears to be impaired. ASSESSMENT: 1. Schizoaffective disorder, bipolar type. 2. Cannabis use disorder, severe. 3. Antisocial Personality Disorder traits 4. Homelessness, no income, no nearby supports The overall assessment is this patient is on M1 hold 5 days after being discharged from [facility]. The patient was manic and disorganized and disruptive in the community, hypersexual in the Emergency Room, and currently agitated and threatening on the inpatient unit. PLAN: 1. The patient is on an M1 hold. Will follow short-term certification for grave disability and a danger to others. The patient appears impulsive and disorganized and agitated with poor insight. He apparently has a history of recurrent noncompliance with outpatient treatment in the past. 2. Will offer lithium liquid 300 mg b.i.d. to monitor compliance and Risperdal M-Tab 1 mg b.i.d. Will increase the dose of these medications if tolerated. 3. The patient will be on assault precautions and safety precautions on the unit. 4. The patient in the ER had a low TSH and so will add on a free T4 to the ER blood work. 5. If the patient is able to get give the names and phone numbers for his parents, we will call them for collateral information. 6. The patient may have been referred to [facility] in the past. Will clarify if the patient is an open client. 7. Discussed with patient the dangers of cannabis causing anxiety and psychosis. /[id number]/MODL MTDD
[2017-11-20] MEDS: RISPERIDONE 1 MG ODT TAB SL SCH (21:27)
--- NOTE | 2017-11-21 00:48 | GCON ---
[f rep st] CONSULTATION REASON FOR CONSULTATION: Medical evaluation for inpatient psychiatric care. HISTORY OF PRESENT ILLNESS: The patient is a 42-year-old male who was admitted to the inpatient psychiatric unit on 11/19/2017. He has paranoid schizophrenia. His affect was very labile during our interview, and he was not able to participate in history or review of systems questions. He was initially verbally threatening, but then started blowing kisses in the air. Security was just outside open door during entire interview. PAST MEDICAL HISTORY: Paranoid schizophrenia. PAST SURGICAL HISTORY: Unable to determine. MEDICATIONS: None prior to admission. ALLERGIES: Geodon. FAMILY HISTORY: Unable to obtain. SOCIAL HISTORY: He is homeless. Unable to obtain any other history. REVIEW OF SYSTEMS: Unable to obtain. OBJECTIVE: VITAL SIGNS: Blood pressure 128/65, heart rate 74, O2 saturation was 98% on room air, respiratory rate of 15, and temperature is 97.4. GENERAL: Very labile. HEENT: Normocephalic, atraumatic. Oropharynx is moist. NECK: Supple. No lymphadenopathy or thyromegaly noted. CARDIOVASCULAR: Regular rate and rhythm. No murmur. LUNGS: Clear to auscultation bilaterally. ABDOMEN: Soft. Normoactive bowel sounds. No hepatosplenomegaly or masses appreciated. : Deferred. SKIN: Multiple tattoos. Warm. No visible lesions or rashes. NEURO: grosly non focal but unable to assess adequately PSYCH: Intermittently aggressive, labile, inappropriate behavior and comments. LABS: White blood cell 5.46, hemoglobin 14.7, hematocrit 43.4, platelet count 240. Chemistries: Sodium 145, potassium 4.6, chloride 106, CO2 of 25, BUN of 9 , creatinine 0.9, glucose 73. Hemoglobin A1c is 5.4. LFTs normal. Lipid panel with an LDL of 80. TSH slightly low at 0.242. Free T4 normal at 1.43. Urine drug screen was noted to be positive for marijuana but otherwise negative. Alcohol was negative. [place] level was low at less than 0.2. ASSESSMENT AND PLAN: 1. Paranoid schizophrenia with acute instability. Care per psychiatric team. 2. General medical concerns. I was unable to elicit any sort of history of previous medical problems. Reviewed laboratories and vital signs which were all in normal range at this time. No further specific evaluation is needed at this time. If he becomes more lucid and able to communicate his history or if any acute medical concerns come up, please feel free to contact the hospitalist service for further consultation as needed. Thank you for the opportunity to participate in his care. /[id number]/MODL MTDD
[2017-11-21] MEDS: LORazepam 0.5 MG TAB PO PRN (04:48)
--- NOTE | 2017-11-21 08:16 | SOAPPROG ---
SOAP Progress Note Assessment/Plan: Assessment: Schizoaffective Disorder, bipolar type Cannabis Use Disorder, severe Homeless Patient admitted on M-1 for causing a disturbance in the community (throwing cups at bicyclist); was masturbating and agitated in ER; during admission evaluation 11/20/17 threatened to assault psychiatrist and reported homicidal ideation toward police. Patient has a history of recurrent medication non-compliance as an outpatient and was discharged from [facility] 11/15/17 on [place] and Invega. Plan: Short Term Certification 11/20/17 [address] Ordered Medication Letter 11/21/17 Continue Liquid [place] 300mg BID Increase Risperdal Mtab SL 2mg BID Monitor behavior, reality testing, impulse control, risk of violence 11/21/17 08:12 Subjective: CC: "What made you think that, I'm not talking to you." Patient reports sleeping well. Denies stiffness, tremor, or feeling oversedated. Denies violent thoughts toward this M.D. or police. Unable to explain his mood; unable to explain how he would obtain housing or food if not in the hospital. Denies feeling agitated but yells at this M.D. and walks away from interview. Objective: Vital Signs Temp Pulse Resp BP Pulse Ox 36.3 C 83 16 136/83 H 97 11/20/17 09:00 11/21/17 04:53 11/21/17 04:53 11/21/17 04:53 11/21/17 04:53 Alert disheveled WM with poor hygiene, malodorous. Speech rapid, brief yelling. Thoughts tangential and disorganized. Paranoid about mind reading. Denies violent or suicidal thoughts. Endorses then denies AH. Ambulatory without tremors. No insight. Impaired judgment. Staff report patient compliant with PO medications but disorganized and agitated on the unit. - Time Spent With Patient Time Spent With Patient: 10 minutes - Pending Discharge Pending Discharge Within 24 Hours: No Pending Discharge Within 48 Hours: No ICD10 Worksheet Patient Problems: Problems Problem Status Onset Cannabis abuse Acute Schizoaffective disorder, bipolar type Acute
[2017-11-21] MEDS: LITHIUM CARBONATE 300 MG/5 ML UDSYR PO SCH ×3 (08:20→20:10)
[2017-11-21] MEDS: RISPERIDONE 1 MG ODT TAB SL SCH ×3 (08:28→20:09)
--- NOTE | 2017-11-22 08:21 | SOAPPROG ---
SOAP Progress Note Assessment/Plan: Assessment: Schizoaffective Disorder, bipolar type Cannabis Use Disorder, severe Homeless Patient admitted on M-1 for causing a disturbance in the community (throwing cups at bicyclist); was masturbating and agitated in ER; during admission evaluation 11/20/17 threatened to assault psychiatrist and reported homicidal ideation toward police. Patient has a history of recurrent medication non-compliance as an outpatient and was discharged from [facility] 11/15/17 on [place] and Invega. Patient appears less agitated but is disorganized and irritable and refusing Risperdal, but reports willingness to take Invega. Plan: Short Term Certification 11/20/[address] Ordered Medication Letter 11/21/17 Continue Liquid [place] 300mg BID; check [place] level Monday11/24/17 if compliant Discontinue Risperdal Start Invega 6mg QAM Monitor behavior, reality testing, impulse control, risk of violence 11/22/17 08:21 Subjective: CC: "Better" Patient reports feeling 'better' but unable to explain in what way. Denies violent or suicidal thoughts. Reports feeling less agitated but briefly yells at this M.D. Makes fragmented statements about longterm and [place]. Denies current probation or parole or upcoming court hearings. Reports he is unwilling to take Risperdal but is willing to take Invega and [place] today. Unable to explain how he would obtain food or nursing home if not in the hospital. Reports having a showcase maker named 'Humberto' but unable to explain where that showcase maker is or how to get ahold of him. Objective: Vital Signs Temp Pulse Resp BP Pulse Ox 36.3 C 74 16 125/91 H 98 11/22/17 06:00 11/22/17 06:00 11/22/17 06:00 11/22/17 06:00 11/22/17 06:00 Alert WM ambulatory disheveled disorganized behavior. Mood 'better.' Affect briefly irritable but more calm than previous. Agitated and yelling briefly. Speech briefly rapid. Thoughts disorganized with loose associations. Denies AH or paranoia. Denies violent or suicidal thoughts. Poor insight/judgment. Staff report patient took AM meds yesterday but refused PM Risperdal and [place] but was able to sleep. Briefly agitated and unable to attend groups. - Time Spent With Patient Time Spent With Patient: 15 minutes - Pending Discharge Pending Discharge Within 24 Hours: No Pending Discharge Within 48 Hours: No ICD10 Worksheet Patient Problems: Problems Problem Status Onset Cannabis abuse Acute Schizoaffective disorder, bipolar type Acute
[2017-11-22] MEDS: PALIPERIDONE 3 MG TAB.ER PO SCH (11:00)
[2017-11-22] MEDS: LITHIUM CARBONATE 300 MG/5 ML UDSYR PO SCH ×2 (11:00→19:51)
[2017-11-22] MEDS: LORazepam 0.5 MG TAB PO PRN (20:58)
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
[2017-11-23] MEDS: LITHIUM CARBONATE 300 MG/5 ML UDSYR PO SCH ×2 (10:04→17:42)
[2017-11-23] MEDS: PALIPERIDONE 3 MG TAB.ER PO SCH (10:05)
[2017-11-23] MEDS: LORazepam 0.5 MG TAB PO PRN (12:28)
[2017-11-24] MEDS: PALIPERIDONE 3 MG TAB.ER PO SCH (10:13)
[2017-11-24] MEDS: LITHIUM CARBONATE 300 MG/5 ML UDSYR PO SCH ×2 (10:13→19:40)
--- NOTE | 2017-11-24 14:40 | SOAPPROG ---
SOAP Progress Note Assessment/Plan: Assessment: Schizoaffective Disorder, bipolar type Cannabis Use Disorder, severe Homeless, financial stressors PTSD symptoms History of recurrent non-compliance with outpatient treatment concurrent with homelessness. Patient willing to take PO medications but is refusing long acting injectable antipsychotics. Plan: Short Term Certification 11/20/[address] Ordered Medication Letter 11/21/17 Continue Liquid [place] 300mg BID Check [place] level Monday11/27/17, or earlier, if patient less agitated Increase Invega 9mg QAM Reviewed over the phone with Dr. Doll. Approved for weekend with review Monday11/27/17 11/24/17 14:43 Subjective: CC: "Get the fuck away from me" Patient refuses interview when approached by M.D. Refuses to discuss discharge planning or refusal of blood draw or medication issues. Objective: Vital Signs Temp Pulse Resp BP Pulse Ox 36.6 C 80 16 134/86 H 95 11/24/17 06:00 11/24/17 06:00 11/24/17 06:00 11/24/17 06:00 11/24/17 06:00 Patient slept 7 hours overnight but napping this afternoon. Patient agitated and hostile with nursing staff with profanity and refused blood draw. Later smiling and laughing with nurses and flirting with nurses. Later irritable and angry and briefly yelling at staff. Patient is lying in bed. When approached reports 'get the fuck away from me.' No tremors or stiffness. Speech RRR brief yelling. Thoughts briefly organized. Affect irritable with this M.D. Refuses to discuss plans after discharge. Denies suicidal or violent thoughts. Denies AH. Insight poor. Judgment questionable. - Time Spent With Patient Time Spent With Patient: 15 minutes - Pending Discharge Pending Discharge Within 24 Hours: No Pending Discharge Within 48 Hours: No ICD10 Worksheet Patient Problems: Problems Problem Status Onset Cannabis abuse Acute Schizoaffective disorder, bipolar type Acute
[2017-11-25] MEDS: PALIPERIDONE 3 MG TAB.ER PO SCH (08:25)
[2017-11-25] MEDS: LITHIUM CARBONATE 300 MG/5 ML UDSYR PO SCH ×2 (08:25→20:42)
[2017-11-25 12:51] VITALS: RESP 12; TEMP 97.7
[2017-11-25] MEDS: LORazepam 0.5 MG TAB PO PRN (17:54)
[2017-11-26] MEDS: PALIPERIDONE 3 MG TAB.ER PO SCH (08:33)
[2017-11-26] MEDS: LITHIUM CARBONATE 300 MG/5 ML UDSYR PO SCH ×2 (08:33→22:00)
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
[2017-11-26] MEDS: LORazepam 0.5 MG TAB PO PRN (22:00)
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
[2017-11-27 06:49] VITALS: BP 110/82; PULSE 82; O2SAT 94
[2017-11-27] MEDS: LITHIUM CARBONATE 300 MG/5 ML UDSYR PO SCH (08:11)
[2017-11-27] MEDS: PALIPERIDONE 3 MG TAB.ER PO SCH (08:12)
[2017-11-27] MEDS: LORazepam 0.5 MG TAB PO PRN (08:12)
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
== END 2017-11-27 12:17 | disposition home or self-care (01) | DRG 885 ==
LOC: BBEH 11-20 08:55
PROVIDERS: ADMIT Psychiatry & Neurology Psychiatry
DX: F25.0 Schizoaffective disorder, bipolar type (principal); F12.259 Cannabis dependence with psychotic disorder, unspecified; F60.2 Antisocial personality disorder; F15.21 Other stimulant dependence, in remission; Z59.0 Homelessness; Z87.820 Personal history of traumatic brain injury
CPT/HCPCS: 80305; G0480

== ENCOUNTER 2017-11-29 22:40 | Emergency (ER) | payer MEDICAID ==
[2017-11-29] MEDS ORDERED: OLANZapine DISINTEGR 10 MG TAB PO ONE (22:50)
[2017-11-29 22:57] LABS: PLATELET COUNT 243 10^3/uL (150-400)
--- NOTE | 2017-11-29 23:06 | EDPHY ---
H & P Smoking Status: Current some day smoker Time Seen by Provider: 11/29/17 22:40 HPI/ROS: CHIEF COMPLAINT: M1 hold, paranoid schizophrenia HISTORY OF PRESENT ILLNESS: 42-year-old male with a known history of paranoid schizophrenia presents to the emergency department by ambulance with [facility] on M1 hold. The patient was found at the [facility] bus station and was altered and disturbing people. He was making threatening statements. He was brought to the emergency department for evaluation. He was evaluated in the emergency department with similar complaints 11/19/2017. He was admitted to [address] [place] [address] and just discharged 2 days ago. He is supposed to be taking lithium 300 mg twice daily and 6 mg of Invega daily. It is unclear to me whether this patient has been taking his medication. Currently the patient has no complaints. He admits to smoking marijuana. Denies alcohol or any other substance abuse. He denies feeling suicidal or homicidal. REVIEW OF SYSTEMS: Constitutional: No fever, no chills. Eyes: No double or blurry vision. ENT: No sore throat. Respiratory: No cough, no shortness of breath. Cardiac: No chest pain. Gastrointestinal: No abdominal pain, vomiting or diarrhea. Genitourinary: No dysuria. Musculoskeletal: No neck or back pain. Skin: No rashes. Neurological: No headache. (AnayLeona steinberg) Past Medical/Surgical History: Paranoid schizophrenia, bipolar, marijuana use (Shantal Leyfeliz Crawley) Social History: Homeless (Leona Ley) Physical Exam: General Appearance: Alert, pressured speech. No visible signs of trauma to his head. Eyes: Pupils equal and round. Cannot determine extraocular motions as the patient is uncooperative. ENT: Mouth: Mucous membranes moist. Respiratory: No wheezing, rhonchi, or rales, lungs are clear to auscultation. Cardiovascular: Regular rate and rhythm. Gastrointestinal: Abdomen is soft and nontender, no masses, no rebound or guarding, bowel sounds normal. Neurological: Uncooperative, cannot determine. Skin: Warm and dry, no rashes. Musculoskeletal: Nontender to palpate along the cervical, thoracic or lumbar spine. Neck is supple. Extremities: Full range of motion and no peripheral edema. Psychiatric: Agitated. (AnayLeona steinberg) Constitutional: Initial Vital Signs Temperature (C) 36.7 C 11/29/17 22:47 Heart Rate 98 11/29/17 22:47 Respiratory Rate 18 11/29/17 22:47 Blood Pressure 128/100 H 11/29/17 22:47 O2 Sat (%) 97 11/29/17 22:47 O2 Delivery Mode Room Air Allergies/Adverse Reactions: geodone Allergy (Severe, Uncoded 11/29/17 22:47) "locks me up" Home Medications: Medication Instructions Recorded [place] Carbonate ER [Eskalith Cr 450 mg PO BID 30 Days tab 11/27/17 450 mg (*)] Paliperidone [Invega 3mg ER (*)] 9 mg PO DAILY #30 tab.er 11/27/17 Medical Decision Making ED Course/Re-evaluation: 42-year-old male presents to the emergency department with altered mental status. He has a known history of paranoid schizophrenia bipolar. He is delusional. He will be placed on an M1 hold. Laboratory studies are pending. ( Leona Ley) 0306: Patient up ambulating causing disturbance in the emergency room additionally going into other patient's rooms. He does not direct very easily. He is not agitated or aggressive but is hard to control. I have ordered him 5 mg p.o. Valium. He has already had 50 mg p. O. Benadryl, additionally he has had 20 mg Zyprexa, and 2 mg Ativan. 0351: Patient resting. 0700: Patient signed over to Dr. Martines at 7am Shift Change. Patient on M1 hold. Acutely psychotic. He did receive multiple medications last night. Patient needs mental health evaluation. (Valente Jennings) Other Provider: Care assumed at 6:22 a.m. With plan for psychiatric evaluation, needs urine toxicology. History of schizoaffective disorder, bipolar type per discharge psychiatric summary dated 11/27/2017 personally viewed with worsening behavior. Recommendation of psychiatric pipe coverer to discharge the patient. Outpatient follow-up with his therapist. He is not acutely psychotic or suicidal at this point. Not currently agitated, not suicidal or homicidal, not currently psychotic. ( River Martines) Care Turn Over: Care will be turned over to Dr. Valente Jennings at 12:15 a.m. (Leona Ley) - Data Points Laboratory Results: Laboratory Results 11/29/17 22:50 11/29/17 22:50 11/30/17 10:05 Urine Opiates Screen NEGATIVE (NEGATIVE) Urine Barbiturates NEGATIVE (NEGATIVE) Ur Phencyclidine Scrn NEGATIVE (NEGATIVE) Ur Amphetamine Screen NEGATIVE (NEGATIVE) U Benzodiazepines Scrn NON-NEGATIVE H (NEGATIVE) Urine Cocaine Screen NEGATIVE (NEGATIVE) U Marijuana (THC) Screen NEGATIVE (NEGATIVE) Medications Given: Discontinued Medications Diazepam (Valium) 5 mg PO EDNOW ONE Stop: 11/30/17 03:07 Last Admin: 11/30/17 03:09 Dose: 5 mg Diphenhydramine HCl (Benadryl Injection) 50 mg IM EDNOW ONE Stop: 11/30/17 02:34 Last Admin: 11/30/17 07:10 Dose: Not Given Diphenhydramine HCl (Benadryl) 50 mg PO EDNOW ONE Stop: 11/30/17 02:46 Last Admin: 11/30/17 02:45 Dose: 50 mg Lorazepam (Ativan) 2 mg PO ONCE ONE Stop: 11/30/17 00:41 Last Admin: 11/30/17 00:43 Dose: 2 mg Lorazepam (Ativan) 2 mg PO ONCE ONE Stop: 11/30/17 01:25 Last Admin: 11/30/17 07:09 Dose: Not Given Olanzapine (Zyprexa Zydis) 10 mg PO EDNOW ONE Stop: 11/29/17 22:51 Last Admin: 11/29/17 22:53 Dose: 10 mg Olanzapine (Zyprexa Zydis) 10 mg PO EDNOW ONE Stop: 11/30/17 01:28 Last Admin: 11/30/17 01:30 Dose: 10 mg Departure - Departure Disposition: Home, Routine, Self-Care Clinical Impression: Schizoaffective disorder, bipolar type Condition: Good Instructions: Schizoaffective Disorder (ED) Referrals: Carmine Rutledge MD [Non Staff Provider (MD)] - As per Instructions
[2017-11-30] MEDS ORDERED: LORazepam 1 MG TAB ONE (00:40)
[2017-11-30] MEDS ORDERED: LORazepam 1 MG TAB PO ONE ×2 (00:40→01:24)
[2017-11-30] MEDS ORDERED: HALOPERIDOL LACT 5 MG/ML INJ ONE (01:24)
[2017-11-30] MEDS ORDERED: OLANZapine DISINTEGR 10 MG TAB ONE (01:26)
[2017-11-30] MEDS ORDERED: OLANZapine DISINTEGR 10 MG TAB PO ONE (01:27)
[2017-11-30] MEDS ORDERED: diphenhydrAMINE 50 MG CAP PO ONE (02:40)
[2017-11-30] MEDS ORDERED: diphenhydrAMINE 25 MG CAP PO ONE (02:45)
[2017-11-30] MEDS ORDERED: DIAZEPAM 5 MG TAB PO ONE (03:06)
[2017-11-30] MEDS ORDERED: DIAZEPAM 5 MG TAB ONE (03:07)
[2017-11-30 09:25] VITALS: TEMP 97.9
[2017-11-30 12:28] VITALS: BP 128/73; PULSE 89; RESP 18; O2SAT 96
== END 2017-11-30 12:47 | disposition home or self-care (01) ==
LOC: EDUNIT#
DX: F25.0 Schizoaffective disorder, bipolar type (principal); F17.200 Nicotine dependence, unspecified, uncomplicated
CPT/HCPCS: 80305; G0480; J1630

== ENCOUNTER 2017-12-16 04:12 | Emergency (ER) | payer MEDICAID ==
--- NOTE | 2017-12-16 04:42 | EDPHY ---
H & P Stated Complaint: R LEG THROBBING PAIN X 1 MONTH Time Seen by Provider: 12/16/17 04:37 HPI/ROS: Chief Complaint: Leg pain HPI: 42-year-old male with a history of schizophrenia is presenting complaining of right leg pain which has been persistent for the last several weeks. Patient denies any injuries but does states that due to his psychiatric illness exacerbation in the last several weeks he did receive multiple injections of Haldol in that leg. Pain is primarily in the right thigh and then goes down the back of his calf. No swelling. No redness. No chest pain or shortness of breath. No recent falls or injuries. He does state he does a lot of stretching but no other new exercise or exertion. Patient has been taking Invega for his schizophrenia and states that he is feeling much better than he has for a long time. ROS: 10 point Review of Systems is negative except as noted in the HPI. PMH: Schizophrenia Social History: No smoking, no alcohol, no recreational drug use Family History: non-contributory Physical Exam: Gen: Awake, Alert, No Distress HEENT: Nose: no rhinorrhea Eyes: PERRLA, EOMI Mouth: Moist mucosa Neck: Supple, no JVD Chest: nontender, lungs clear to auscultation Heart: S1, S2 normal, no murmur Abd: Soft, non-tender, no guarding Back: no CVA tenderness, no midline tenderness Ext: no edema, patient has tenderness in the posterior right thigh and in the calf. Skin: no rash Neuro: CN II-XII intact, Sensation grossly intact, Strength 5/5 in bilateral upper and lower extremities - Personal History Current Tetanus Diphtheria and Acellular Pertussis (TDAP): Yes - Medical/Surgical History Hx Asthma: No Hx Chronic Respiratory Disease: No Hx Diabetes: No Hx Cardiac Disease: No Hx Renal Disease: No Hx Cirrhosis: No Hx Alcoholism: No Hx HIV/AIDS: No Hx Splenectomy or Spleen Trauma: No Other PMH: schizoaffective,bipolar, ADHD, paranoid schizaphrenia, APPY - Social History Smoking Status: Heavy smoker Constitutional: Initial Vital Signs Temperature (C) 36.3 C 12/16/17 04:16 Heart Rate 98 12/16/17 04:16 Respiratory Rate 16 12/16/17 04:16 Blood Pressure 109/70 12/16/17 04:16 O2 Sat (%) 97 12/16/17 04:16 O2 Delivery Mode Room Air Allergies/Adverse Reactions: ziprasidone [From Geodon] Allergy (Severe, Verified 12/06/17 08:32) Home Medications: Medication Instructions Recorded Paliperidone Palmitate [Invega 234 mg IM ONCE #1 syr 12/15/17 Sustenna (*)] Medical Decision Making - Diagnostics Imaging Results: Duplex ultrasound of the patient's leg is negative for DVT per Dr. Moreno. Imaging: Discussed imaging studies w/ call or contact centre coach Radiologist ED Course/Re-evaluation: 42-year-old male with right leg pain. Ultrasound is negative for DVT. Symptoms consistent with a muscle strain. Will discharge with follow-up as an outpatient. Departure - Departure Disposition: Home, Routine, Self-Care Clinical Impression: Muscle strain Condition: Good Instructions: Muscle Strain (ED) Additional Instructions: You may alternate ibuprofen with acetaminophen as needed for pain. Please continue taking your psychiatric medications. Follow up at [facility] for any concerns. Referrals: NONE *PRIMARY CARE P,. [Primary Care Provider] - As per Instructions [facility],. [Clinic] - As per Instructions
[2017-12-16 05:39] VITALS: BP 134/76
== END 2017-12-16 05:20 | disposition home or self-care (01) ==
DX: S86.911A Strain of unspecified muscle(s) and tendon(s) at lower leg level, right leg, initial encounter (principal); F17.200 Nicotine dependence, unspecified, uncomplicated; X58.XXXA Exposure to other specified factors, initial encounter

== ENCOUNTER 2018-02-22 01:36 | Observation (INO) | payer MEDICAID ==
[~2018-02-22 01:36] MED LIST: PANTOPRAZOLE SODIUM 40 MG TAB PO SCH
[2018-02-22] MEDS ORDERED: NS 1,000 ML IV ONE (01:41)
--- NOTE | 2018-02-22 01:45 | EDPHY ---
H & P Stated Complaint: cp Time Seen by Provider: 02/22/18 01:43 HPI/ROS: HPI CHIEF COMPLAINT: Brief stabbing left-sided chest pain HISTORY OF PRESENT ILLNESS: Patient is a 42-year-old male, he has a history of schizophrenia, attention deficit hyperactivity disorder, bipolar, and no history of cardiovascular disease he presents emergency room stating that he had a brief episode of left-sided chest discomfort. Describes it as sharp stabbing. He states that this started at 12:30 p.m. It is now 1:45 a.m.. Patient states pain did not radiate anywhere was on the left side of his chest was very brief. Lasting 45 min. He became concerned about this and called 911. He did receive 1 dose of nitroglycerin full-dose aspirin prior to arrival. States the pain resolved after this. Since arriving to the emergency room he denies any chest pain or shortness of breath. The symptoms have resolved. He is requesting to eat a sandwich. Past Medical History: Paranoid schizophrenia, bipolar disorder Past Surgical History: Appendectomy Social History: Smokes tobacco daily. Denies illicit drugs or alcohol. Family History: Noncontributory ROS REVIEW OF SYSTEMS: A comprehensive 10 point review of systems is otherwise negative aside from elements mentioned in the history of present illness. Exam Constitutional nontoxic. triage nursing summary reviewed, vital signs reviewed , awake/alert. Eyes normal conjunctivae and sclera, EOMI, PERRLA. HENT normal inspection, atraumatic, moist mucus membranes, no epistaxis, neck supple/ no meningismus, no raccoon eyes. Respiratory clear to auscultation bilaterally, normal breath sounds, no respiratory distress, no wheezing. Cardiovascular rate normal, regular rhythm, no murmur, no edema, distal pulses normal. Gastrointestinal soft, non-tender, no rebound, no guarding, normal bowel sounds, no distension, no pulsatile mass. Genitourinary no CVA tenderness. Musculoskeletal no midline vertebral tenderness, full range of motion, no calf swelling, no tenderness of extremities, no meningismus, good pulses, neurovascularly intact. Skin pink, warm, & dry, no rash, skin atraumatic. Neurologic awake, alert and oriented x 3, AAOx3, moves all 4 extremities equally, motor intact, sensory intact, CN II-XII intact, normal cerebellar, normal vision, normal speech. Psychiatric normal mood/affect. Heme/Lymph/Immune no lymphadenopathy. Differential diagnosis includes but is not limited to: ACS, atypical chest pain , pneumothorax, pneumonia, pulmonary embolism, aortic dissection, congestive heart failure, tumor, musculoskeletal pain, esophageal pain, GERD, peptic ulcer disease, pancreatitis Medical Decision Making: Plan for this patient IV establishment with blood draw , obtain point of care troponin, EKG, chest x-ray, and re-evaluate. Re-evaluation: EKG interpretation by me on record in [facility] system. Impression time of EKG 1:47 a.m., sinus rhythm rate of [address] elevation, no ST depression no significant T-wave abnormalities. Nonischemic EKG. 0435: Patient has been sleeping here in the emergency room in no acute distress. Patient's initial EKG was nonischemic and he had a negative troponin. Plan will be for repeat troponin repeat EKG. Patient's chest x-ray reviewed one-view negative for acute cardiopulmonary disease. No evidence of pneumothorax. 0453: This is a repeat EKG, sinus rhythm rate of [address] T abnormality segment on the inferior leads to 3 AVF on the 2nd EKG compared to the 1st When compared to his previous EKG this evening it is unchanged. 0500: Repeat troponin 0.00 Patient's cardiovascular risk factors include extensive tobacco use. Denies any family history of cardiovascular disease. Patient does have mental illness it seem somewhat poorly controlled. He is not acutely psychotic here. It is unclear how reliable his chest pain story is. Urinalysis reviewed no evidence of cocaine. Patient's 2nd EKG shows some abnormality in inferior leads to [address] elevation. Given this patient's mental health history, description left-sided chest discomfort an abnormal EKG with subtle ST abnormality inferior leads on the 2nd EKG Will plan on admitting the patient for stress test. I spoke with Dr. Newman who agrees. Source: Patient, EMS - Personal History Current Tetanus Diphtheria and Acellular Pertussis (TDAP): Yes - Medical/Surgical History Hx Asthma: No Hx Chronic Respiratory Disease: No Hx Diabetes: No Hx Cardiac Disease: No Hx Renal Disease: No Hx Cirrhosis: No Hx Alcoholism: No Hx HIV/AIDS: No Hx Splenectomy or Spleen Trauma: No Other PMH: schizoaffective,bipolar, ADHD, paranoid schizaphrenia, APPY - Social History Smoking Status: Heavy smoker Constitutional: Initial Vital Signs Temperature (C) 36.6 C 02/22/18 01:39 Heart Rate 71 02/22/18 01:39 Respiratory Rate 16 02/22/18 01:39 Blood Pressure 105/70 02/22/18 01:39 O2 Sat (%) 94 02/22/18 01:39 O2 Delivery Mode Room Air Allergies/Adverse Reactions: ziprasidone [From Geodon] Allergy (Severe, Verified 02/22/18 01:39) Home Medications: Medication Instructions Recorded Pantoprazole Sodium [Protonix] 40 mg PO DAILY #30 tablet. 02/22/18 Medical Decision Making - Data Points Laboratory Results: Laboratory Results 02/22/18 01:48 02/22/18 01:48 Medications Given: Discontinued Medications Sodium Chloride (Ns) 1,000 mls @ 0 mls/hr IV EDNOW ONE; Wide Open PRN Reason: Protocol Stop: 02/22/18 01:42 Last Admin: 02/22/18 01:54 Dose: 1,000 mls Point of Care Test Results: Chemistry 02/22/18 02/22/18 04:54 01:44 POC Troponin I 0.00 ng/mL ng/mL 0.01 ng/mL ng/mL (0.00-0.08) (0.00-0.08) Departure - Departure Disposition: [facility] Inpatient Acute Clinical Impression: Chest pain Qualifiers: Chest pain type: unspecified Qualified Code(s): R07.9 - Chest pain, unspecified Condition: Good
--- NOTE | 2018-02-22 01:49 | CPEKG ---
Heart Rate: 62 RR Interval: 968 P-R Interval: 204 QRSD Interval: 86 QT Interval: 412 QTC Interval: 419 P [place]: 47 QRS [place]: 14 T Wave [place]: 40 EKG Severity - OTHERWISE NORMAL ECG - EKG Impression: SINUS RHYTHM EKG Impression: LOW VOLTAGE IN FRONTAL LEADS Electronically Signed By: Valente Jennings 22-Feb-2018 07:13:49
[2018-02-22 02:03] LABS: PLATELET COUNT 254 10^3/uL (150-400)
[2018-02-22 02:06] LABS: INR 0.96 (0.83-1.16)
--- NOTE | 2018-02-22 04:51 | CPEKG ---
Heart Rate: 51 RR Interval: 1176 QRSD Interval: 100 QT Interval: 464 QTC Interval: 428 QRS [place]: 47 T Wave [place]: 47 EKG Severity - ABNORMAL ECG - EKG Impression: ATRIAL FIBRILLATION EKG Impression: LOW VOLTAGE IN FRONTAL LEADS Electronically Signed By: Valente Jennings 22-Feb-2018 07:13:49
[2018-02-22] MEDS ORDERED: ONDANSETRON DISINTEGRATING 4 MG TAB PO PRN (07:24)
[2018-02-22] MEDS ORDERED: ACETAMINOPHEN 325 MG TAB PO PRN (07:24)
[2018-02-22] MEDS ORDERED: ONDANSETRON 4 MG/2 ML VIAL IVP PRN (07:24)
[2018-02-22] MEDS ORDERED: diphenhydrAMINE 25 MG CAP PO PRN (07:24)
[2018-02-22] MEDS ORDERED: NITROGLYCERIN 0.4 MG BTL SL PRN (07:30)
--- NOTE | 2018-02-22 10:53 | CPR ---
[f rep st] NONINVASIVE CARDIAC PROCEDURE REPORT DATE OF PROCEDURE: 02/22/2018 PROCEDURE: Exercise treadmill test. INDICATION: The patient is a 42-year-old male who presented to the hospital with sharp chest pain wh ich occurred last night. His symptoms lasted for approximately an hour and did seem to improve with nitroglycerin and aspirin. He denies any history of hypertension, hyperlipidemia, diabetes, or famil y history of premature coronary artery disease. He is a smoker and currently smokes about a pack of cigarettes a day. PROCEDURE IN DETAIL: Consent was obtained and the patient was placed on continuous telemetry. His r esting EKG revealed normal sinus rhythm without any ST-T wave changes to suggest ischemia. The patie nt walked on the treadmill for 9 minutes and 49 seconds. The treadmill was held in the 3rd stage at 9 minutes. He reached greater than 85% of his age-predicted maximum heart rate with a max heart rate of 155 beats per minute. The exercise portion of the study was discontinued secondary to max effort . He denied any symptoms with exertion. There were no ST-T wave changes to suggest ischemia. His b lood pressure at rest was 118/86 and peaked at 182/82. It returned to baseline within 4 minutes of r ecovery. PLAN: Low risk exercise treadmill test. /[id number]/MODL
--- NOTE | 2018-02-22 13:34 | GHP ---
[f rep st] HISTORY AND PHYSICAL DATE OF ADMISSION: 02/22/2018 HISTORY AND PHYSICAL/DISCHARGE SUMMARY CHIEF COMPLAINT: Chest pain. HISTORY OF PRESENT ILLNESS: Mr. Yoder is a 42-year-old homeless male with history of schizophrenia an d tobacco abuse, who presents to the emergency department with transient stabbing left-sided chest pa in. This was a brief episode and had resolved by the time he arrived to the emergency department. O nset was around noon on February 21. It lasted for less than an hour. He presented to the emergency d epartment nearly 14 hours later, at which time he had a negative troponin and a nonischemic EKG. He had no associated nausea, shortness of breath, or diaphoresis. He has remained chest pain free throu ghout the rest of the night and the morning. Repeat EKG continues to be nonischemic. His troponins remain negative. He underwent an exercise stress test, which was low risk. PAST MEDICAL HISTORY: 1. Schizophrenia, possible bipolar disorder. 2. Tobacco abuse. MEDICATIONS: None. ALLERGIES: Ziprasidone. SOCIAL HISTORY: The patient is homeless. He denies alcohol use. He smokes tobacco daily. FAMILY HISTORY: Reviewed and noncontributory. REVIEW OF SYSTEMS: A 10-point review of systems performed and negative except as per HPI. OBJECTIVE: VITAL SIGNS: Temperature 36.7, blood pressure 115/79, heart rate 60, respiratory rate 16 , he is 98% on room air. GENERAL: Patient is awake, alert, oriented, in no distress. HEENT: Head is atraumatic, normocephalic. Pupils equal, round, react to light. Extraocular muscles intact. Jh pharynx clear. Mucous membranes are moist. NECK: Supple. There is no JVD. HEART: Regular rate a nd rhythm without murmur. LUNGS: Coarse breath sounds bilaterally. ABDOMEN: Soft, nondistended, n ontender with normoactive bowel sounds. EXTREMITIES: Without cyanosis, clubbing, or edema. NEUROLO GIC: Grossly nonfocal. LABORATORY DATA: CBC is completely normal. INR is normal at 0.96. D-dimer is negative at 0.33. Co mplete metabolic panel completely normal. Troponin negative x2. Urine tox screen is positive for ma rijuana, otherwise, negative. Lipase is also negative. ASSESSMENT AND PLAN: Mr. Yoder is a 42-year-old homeless male, who presented to the emergency departm ent with chest pain. His only known cardiac risk factor is tobacco abuse. As above, his EKG is darnell schemic. His troponins are negative. He had a low risk exercise treadmill stress test. I do not th ink his chest pain is cardiac in nature and may be musculoskeletal. Also consider a gastrointestinal source such as esophageal spasm. I have written him for Protonix 40 mg daily to see if this helps a nd recommend he follow up with the [facility] for further management. DISCHARGE MEDICATIONS: Please see [facility] for completed outpatient medication list. New medication s on discharge include Protonix 40 mg p.o. daily. FOLLOWUP: Patient is to follow up at [facility] in 3-5 days. /[id number]/MODL
[2018-02-22 13:44] VITALS: BP 109/75
--- NOTE | 2018-02-26 16:22 | ASMTCMCOM ---
CM Note CM Note Notes: Followed-up with [facility] and spoke w/Katja re:pt's recent ED visit. Pt is followed at their [facility]. Spoke jazlyn/Dory at [facility] ([phone])and they were unaware pt had been admitted/discharged on 02/22/18 with instructions to followup with [facility] and also a G.I. specialist. Dory requested that pt's visit report be faxed to them for review; (F: [phone]) and they will reach out to patient for follow-up and specialist referral. CM available for further assistance if needed. Date Signed: 02/26/2018 04:22 PM Electronically Signed By:Neelima Zavala RN
--- NOTE | 2018-02-26 16:24 | ASDISCHSUM ---
Discharge Information Plan Status:Homeless/Half-Way Medically Cleared to Leave: Discharge Date:02/22/2018 12:55 PM CM D/C Disposition:Streets (Homeless) ADT D/C Disposition:Home, Routine, Self-Care Projected Discharge Date:02/22/2018 12:55 PM Transportation at D/C:None or Unknown Discharge Delay Reason: Follow-Up Date:02/22/2018 12:55 PM Discharge Slot: Final Diagnosis: Placement Information Patient Contact Information Contact Name:WILLIAMMinnie Relationship: Address: Home Phone: Work Phone: City: Alternate Phone: State/Zip Code: Email: Financial Information Financial Class:Medicaid Primary Plan Desc:[employer] [employer] Primary Plan Number:[id number] Secondary Plan Desc: Secondary Plan Number: Assessment Information [facility] CM Progress Note CM Note CM Note Notes: Followed-up with [facility] and spoke w/Katja re:pt's recent ED visit. Pt is followed at their [facility]. Spoke jazlyn/Dory at [facility] ([phone])and they were unaware pt had been admitted/discharged on 02/22/18 with instructions to followup with [facility] and also a G.I. specialist. Dory requested that pt's visit report be faxed to them for review; (F: [phone]) and they will reach out to patient for follow-up and specialist referral. CM available for further assistance if needed. 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
== END 2018-02-22 12:55 | disposition home or self-care (01) ==
LOC: EDUNIT#
PROVIDERS: ADMIT Family Medicine; ATTEND Family Medicine
DX: R07.89 Other chest pain (principal); F20.9 Schizophrenia, unspecified; F90.9 Attention-deficit hyperactivity disorder, unspecified type; F31.9 Bipolar disorder, unspecified; F17.210 Nicotine dependence, cigarettes, uncomplicated; Z59.0 Homelessness
CPT/HCPCS: 80305; 84484-PO

== ENCOUNTER 2018-04-04 21:12 | Emergency (ER) | payer MEDICAID ==
--- NOTE | 2018-04-04 21:27 | CPEKG ---
Heart Rate: 70 RR Interval: 857 P-R Interval: 180 QRSD Interval: 88 QT Interval: 400 QTC Interval: 432 P [place]: 66 QRS [place]: 26 T Wave [place]: 54 EKG Severity - ABNORMAL ECG - EKG Impression: SINUS RHYTHM EKG Impression: LOW VOLTAGE IN FRONTAL LEADS Electronically Signed By: Madai Vincent 04-Apr-2018 23:04:23
[2018-04-04] MEDS ORDERED: ACETAMINOPHEN 500 MG TAB ONE (21:38)
--- NOTE | 2018-04-04 21:45 | EDPHY ---
H & P Stated Complaint: Chest pain, denies drug use Time Seen by Provider: 04/04/18 21:20 HPI/ROS: CHIEF COMPLAINT: Chest pain HISTORY OF PRESENT ILLNESS: 43-year-old male presents with chest pain. Onset of moderate left-sided chest pain 3 hr ago. The pain is sharp and stabbing and increases with deep inspiration with movement. No associated symptoms. Prior similar episode in February 2018. He was admitted to this facility and serial troponins and treadmill test were unremarkable. Cardiac risk factors positive for smoking only. REVIEW OF SYSTEMS: complete 10 point ROS negative except at noted in the HPI - Personal History Current Tetanus Diphtheria and Acellular Pertussis (TDAP): No - Medical/Surgical History Hx Asthma: No Hx Chronic Respiratory Disease: No Hx Diabetes: No Hx Cardiac Disease: No Hx Renal Disease: No Hx Cirrhosis: No Hx Alcoholism: No Hx HIV/AIDS: No Hx Splenectomy or Spleen Trauma: No Other PMH: schizoaffective,bipolar, ADHD, paranoid schizaphrenia, APPY - Social History Smoking Status: Heavy smoker Alcohol Use: Sober Additional Social History: Homeless - Physical Exam Exam: General Appearance: Alert, pleasant Eyes: Pupils equal and round, no conjunctival pallor or injection ENT, Mouth: Mucous membranes moist Neck: Normal inspection Respiratory: Left chest wall tenderness, Lungs are clear to auscultation Cardiovascular: Regular rate and rhythm Gastrointestinal: Abdomen is soft and nontender Neurological: A&O, nonfocal, normal gait Skin: Warm and dry, no rash Extremities: Nontender, no pedal edema Psychiatric: Mood and affect normal Constitutional: Initial Vital Signs Temperature (C) 36.5 C 04/04/18 21:05 Heart Rate 78 04/04/18 21:05 Respiratory Rate 18 04/04/18 21:05 Blood Pressure 100/75 04/04/18 21:05 O2 Sat (%) 97 04/04/18 21:05 O2 Delivery Mode Room Air Allergies/Adverse Reactions: ziprasidone [From Geodon] Allergy (Severe, Verified 04/04/18 21:19) Home Medications: Medication Instructions Recorded Pantoprazole Sodium [Protonix] 40 mg PO DAILY #30 tablet. 02/22/18 Medical Decision Making - Diagnostics EKG Interpretation: EKG interpreted by me reveals normal sinus rhythm, rate 70, low voltage in the frontal leads, no ST or T segment changes. Interpretation: Abnormal EKG Imaging Results: CXR: NAD Imaging: I viewed and interpreted images myself ED Course/Re-evaluation: This pt presents with atypical cp, similar to recent episode in 02/26. During my initial exam, I needed to wake him up, which makes me question the validity of his c/o. In any case, EKG/CXR/trop unremarkable, and given recent admission with negative w/u, I feel that he is safe and stable for d/c. Heart score 0. Strongly encouraged outpt f/u. Tylenol given for pain. Differential Diagnosis: includes though not limited to ACS, PTX, pneumonia, PE, dissection - Data Points Point of Care Test Results: Chemistry 04/04/18 21:21 POC Troponin I 0.00 ng/mL ng/mL (0.00-0.08) Departure - Departure Disposition: Home, Routine, Self-Care Clinical Impression: Chest pain Qualifiers: Chest pain type: intercostal pain Qualified Code(s): R07.82 - Intercostal pain Condition: Good Instructions: Chest Pain (ED) Additional Instructions: Take Tylenol 650 mg every 4 hr as needed for pain. [facility] has walk-in appointments for the homeless at the following days/locations. No appointment is needed. Monday 8-10 am @ [facility] 11 AM-1 PM @ [facility] Monday 8-10:30 AM @ [facility] Monday 8-10 AM @ [facility] 2-4 PM @ [facility] Monday 8-10 AM @ [facility] Referrals: [facility],. [Clinic] - As per Instructions
[2018-04-04 22:36] VITALS: BP 110/76
== END 2018-04-04 22:36 | disposition home or self-care (01) ==
LOC: EDBD → EDUNIT#
DX: R07.82 Intercostal pain (principal); F17.200 Nicotine dependence, unspecified, uncomplicated
CPT/HCPCS: 84484-PO

== ENCOUNTER 2018-11-11 05:08 | Emergency (ER) | payer MEDICAID | END 2018-11-11 07:07 | disposition home or self-care (01) ==

== ENCOUNTER 2018-11-27 13:17 | Emergency (ER) | payer MEDICAID, OTHER ==
[2018-11-27 13:27] VITALS: BP 117/71
--- NOTE | 2018-11-27 13:34 | EDPHY ---
H & P Stated Complaint: SI off his buspar for 1 week Time Seen by Provider: 11/27/18 13:33 HPI/ROS: CHIEF COMPLAINT: Suicidal statements, on M1 psychiatric hold HISTORY OF PRESENT ILLNESS: The patient is brought in by police on M1 psychiatric hold after he was making suicidal statements. The patient is homeless. He reportedly was recently incarcerated. He has been off his is buspirone. The patient denies any significant ingestion. He denies any self- harm. The patient denies any acute medical complaints. The patient is somewhat vague about his suicidal ideation. He does not have a specific plan. REVIEW OF SYSTEMS: A comprehensive 10 point review of systems is otherwise negative aside from elements mentioned in the history of present illness. Source: Patient - Personal History Current Tetanus Diphtheria and Acellular Pertussis (TDAP): No - Medical/Surgical History Hx Asthma: No Hx Chronic Respiratory Disease: No Hx Diabetes: No Hx Cardiac Disease: No Hx Renal Disease: No Hx Cirrhosis: No Hx Alcoholism: No Hx HIV/AIDS: No Hx Splenectomy or Spleen Trauma: No Other PMH: anxiety - Social History Smoking Status: Current every day smoker - Physical Exam Exam: General Appearance: Disheveled, homeless male Eyes: Pupils equal and round no pallor or injection ENT, Mouth: Mucous membranes moist Respiratory: There are no retractions, lungs are clear to auscultation Cardiovascular: Regular rate and rhythm Gastrointestinal: Abdomen is soft and nontender, no masses, bowel sounds normal Neurological: A&O, normal motor function, normal sensory exam, normal cranial nerves Skin: Warm and dry, no rashes Musculoskeletal: Neck is supple nontender Extremities: symmetrical, full range of motion Psychiatric: Endorses symptoms of suicide without a specific plan Constitutional: Initial Vital Signs Temperature (C) 36.7 C 11/27/18 13:25 Heart Rate 92 11/27/18 13:25 Respiratory Rate 18 11/27/18 13:25 Blood Pressure 117/71 11/27/18 13:25 O2 Sat (%) 97 11/27/18 13:25 O2 Delivery Mode Room Air Allergies/Adverse Reactions: ziprasidone [From Geodon] Allergy (Severe, Verified 11/27/18 13:25) Home Medications: Medication Instructions Recorded NK [No Known Home Meds] 11/27/18 Medical Decision Making ED Course/Re-evaluation: The patient was medically cleared for psychiatric evaluation at 2:30 p.m.. The patient was evaluated by the mental health team who felt the patient did not meet criteria for 72 hr mental health hold and may in fact be malingering. Dr. Mcdonald vacated the mental health hold. In the patient is discharged from the department at his recommendation. Differential Diagnosis: Differential diagnosis considered includes suicidal ideation, depression, malingering, mood disorder, personality disorder - Data Points Laboratory Results: Laboratory Results 11/27/18 13:40 11/27/18 13:40 11/27/18 11/27/18 11/27/18 14:56 13:40 13:40 WBC 5.97 10^3/uL 10^3/uL (3.80-9.50) RBC 4.86 10^6/uL 10^6/uL (4.40-6.38) Hgb 15.0 g/dL g/dL (13.7-17.5) Hct 44.4 % % (40.0-51.0) MCV 91.4 fL fL (81.5-99.8) MCH 30.9 pg pg (27.9-34.1) MCHC 33.8 g/dL g/dL (32.4-36.7) RDW 12.5 % % (11.5-15.2) Plt Count 285 10^3/uL 10^3/uL (150-400) MPV 9.8 fL fL (8.7-11.7) Neut % (Auto) 67.1 % % (39.3-74.2) Lymph % (Auto) 23.3 % % (15.0-45.0) [place] % (Auto) 8.2 % % (4.5-13.0) Eos % (Auto) 0.5 % L % (0.6-7.6) Baso % (Auto) 0.7 % % (0.3-1.7) Nucleat RBC Rel Count 0.0 % % (0.0-0.2) Absolute Neuts (auto) 4.01 10^3/uL 10^3/uL (1.70-6.50) Absolute Lymphs (auto) 1.39 10^3/uL 10^3/uL (1.00-3.00) Absolute Monos (auto) 0.49 10^3/uL 10^3/uL (0.30-0.80) Absolute Eos (auto) 0.03 10^3/uL 10^3/uL (0.03-0.40) Absolute Basos (auto) 0.04 10^3/uL 10^3/uL (0.02-0.10) Absolute Nucleated RBC 0.00 10^3/uL 10^3/uL (0-0.01) Immature Gran % 0.2 % % (0.0-1.1) Immature Gran # 0.01 10^3/uL 10^3/uL (0.00-0.10) Sodium 139 mEq/L mEq/L (135-145) Potassium 3.3 mEq/L L mEq/L (3.5-5.2) Chloride 101 mEq/L mEq/L (97-110) Carbon Dioxide 27 mEq/l mEq/l (22-31) Anion Gap 11 mEq/L mEq/L (6-14) BUN 10 mg/dL mg/dL (7-23) Creatinine 0.8 mg/dL mg/dL (0.7-1.3) Estimated GFR > 60 Glucose 81 mg/dL mg/dL (70-100) Calcium 9.3 mg/dL mg/dL (8.5-10.4) Urine Opiates Screen Pending Urine Barbiturates Pending Ur Phencyclidine Scrn Pending Ur Amphetamine Screen Pending U Benzodiazepines Scrn Pending Urine Cocaine Screen Pending U Marijuana (THC) Screen Pending Ethyl Alcohol < 10 mg/dL mg/dL (0-10) Departure - Departure Disposition: Home, Routine, Self-Care Clinical Impression: Depression Condition: Good Instructions: Depression (ED) Additional Instructions: 1. Please follow-up with the mental health resources provided in the ED today. 2. [facility] does operate a 24/ psychiatric crisis unit located at [facility]. The telephone number for the 24 hour crisis center is [phone]. 3. Please return to the ED if you are feeling suicidal, having thoughts of harming yourself/others or should you feel unsafe or have worsening symptoms. Referrals: [facility],. [Clinic] - As per Instructions
[2018-11-27 13:57] LABS: PLATELET COUNT 285 10^3/uL (150-400)
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
--- NOTE | 2018-11-27 16:49 | ASMTTCLDSP ---
[facility] Discharge Disposition Disposition: Answers: Discharge If Answers: Yes DISCHARGED: Patient/family given suicide hotline info & SAMHSA brochure? Disposition Notes: Notes: Pt was encouraged to contact Medicaid for resources and medication mangement. Discharge Concerns/Recommendations: Notes: In consultation with [facility] ED physician, Prem Hoskins MD, and on-call psychiatrist, Tu Harrison MD, both concurred that pt does not appear to meet 27-65 criteria requiring psychiatric hospitalization as pt does not appear to be an imminent risk of harm to self/others/gravely disabled due to a mental illness condition. Psychiatrist vacating M1 Tu Harrison MD Hold: Date and time M1 hold 11/27/2018 03:30 PM vacated (time format is hh:mm): Date Signed: 11/27/2018 04:49 PM Electronically Signed By:Lyric Betancourt
== END 2018-11-27 15:57 | disposition home or self-care (01) ==
DX: F32.9 Major depressive disorder, single episode, unspecified (principal); F41.9 Anxiety disorder, unspecified; Z59.0 Homelessness
CPT/HCPCS: 80305; G0480